=== PATIENT | female | born 1945 ===

== ENCOUNTER 2019-08-27 17:15 | Inpatient (IN) ==
[2019-08-27] MEDS ORDERED: ALBUTEROL/IPRATROPIUM 3 ML NEB RESP TX STA (19:15)
[2019-08-27] MEDS ORDERED: GLUCAGON 1 MG VIAL IM PRN (21:04)
[2019-08-27] MEDS ORDERED: ONDANSETRON 4 MG/2 ML VIAL IV PRN (21:04)
[2019-08-27] MEDS ORDERED: DEXTROSE 50% 25 GM/50 ML SYRINGE IV PRN (21:04)
[2019-08-27] MEDS: SODIUM CHLORIDE 0.9% 1,000 ML IV SCH (22:26)
[2019-08-28 06:59] LABS: Basophils % 0.2 % (0.0-0.8); Eosinophils # 0.1 10*3/uL (0.0-0.87); Eosinophils % 0.4 % (0.00-10.9); Hematocrit 36.3 VOL% (35.7-47.0); Immature Granulocytes % 0.6 %; Immature Granulocytes Absolute 0.12 #; Lymphocytes # 1.8 10*3/uL (1.4-4.0); Lymphocytes % 9.4 % (21.3-54.2); Mean Corpuscular HGB Conc 33.1 GM/DL (32-36); Mean Corpuscular Volume 85.8 FL (87-102); Mean Platelet Volume 10.3 FL (9.6-12.0); Monocytes % 6.6 % (1.7-12.7); Neutrophils % 82.8 % (38.7-73.9); Platelet Count 250 T/CUMM (130-400); Red Blood Count 4.23 MC/CUMM (3.8-5.5); Red Cell Distribution Width 12.7 % (9.3-17.3); White Blood Count 19.3 T/CUMM (4-12)
[2019-08-28 07:17] LABS: Albumin 2.9 G/DL (3.4-5.0); Calcium 8.4 MG/DL (8.5-10.1); Osmolality,Calculated 278.4 MOS/KG (273-304); Total Protein 7.8 G/DL (6.4-8.3)
[2019-08-28] MEDS: INSULIN REGULAR 100 UNIT/ML SUBCUT SCH ×5 (08:31→20:56)
[2019-08-28] MEDS: VANCOMYCIN INJ 1,250 MG in SODIUM CHLORIDE 0.9% 250 ML IV SCH (08:35)
[2019-08-28] MEDS ORDERED: BUPIVACAINE MPF 0.25% 30 ML VIAL ONE (12:13)
[2019-08-28] MEDS ORDERED: LIDOCAINE 2% 5 ML VIAL ONE (12:43)
[2019-08-28] MEDS ORDERED: propofoL 200 MG/20 ML VIAL IV ONE (12:43)
[2019-08-28] MEDS ORDERED: SEVOFLURANE 1 UNIT/15 MINUTE INH ONE (12:44)
[2019-08-28] MEDS ORDERED: PHENYLEPHRINE 1 MG/10 ML SYRINGE IV ONE (12:44)
[2019-08-28] MEDS ORDERED: SUCCINYLCHOLINE 200 MG/10 ML VIAL ONE (12:44)
[2019-08-28] MEDS ORDERED: fentaNYL 100 MCG/2 ML VIAL ONE (12:44)
[2019-08-28] MEDS ORDERED: LIDOCAINE 100 MG/5 ML SYRINGE ONE (13:11)
[2019-08-28] MEDS ORDERED: LIDOCAINE 100 MG/5 ML SYRINGE IV ONE (13:15)
[2019-08-28] MEDS ORDERED: GLUCAGON 1 MG VIAL IM PRN (13:22)
[2019-08-28] MEDS ORDERED: DEXTROSE 50% 25 GM/50 ML VIAL IV PRN (13:22)
[2019-08-28] MEDS: INSULIN GLARGINE 100 UNIT/ML SUBCUT SCH (14:24)
[2019-08-28] MEDS: PANTOPRAZOLE 40 MG TABLET PO SCH (14:57)
[2019-08-28] MEDS: SODIUM CHLORIDE 0.9% 1,000 ML IV SCH (18:01)
[2019-08-28] MEDS: ENOXAPARIN 30 MG/0.3 ML SYRINGE SUBCUT SCH (20:56)
[2019-08-29] MEDS: SODIUM CHLORIDE 0.9% 1,000 ML IV SCH (06:26)
[2019-08-29 06:41] LABS: Basophils % 0.1 % (0.0-0.8); Eosinophils # 0.1 10*3/uL (0.0-0.87); Eosinophils % 0.4 % (0.00-10.9); Hematocrit 31.8 VOL% (35.7-47.0); Hemoglobin 10.2 GM/DL (12.0-16.0); Immature Granulocytes % 0.5 %; Immature Granulocytes Absolute 0.07 #; Lymphocytes # 1.4 10*3/uL (1.4-4.0); Lymphocytes % 9.8 % (21.3-54.2); Mean Corpuscular HGB Conc 32.1 GM/DL (32-36); Mean Corpuscular Volume 86.9 FL (87-102); Neutrophils % 82.2 % (38.7-73.9); Platelet Count 224 T/CUMM (130-400); Red Blood Count 3.66 MC/CUMM (3.8-5.5); Red Cell Distribution Width 12.6 % (9.3-17.3); White Blood Count 14.2 T/CUMM (4-12)
[2019-08-29 07:14] LABS: Calcium 7.6 MG/DL (8.5-10.1)
[2019-08-29] MEDS: INSULIN REGULAR 100 UNIT/ML SUBCUT SCH ×4 (07:59→21:00)
[2019-08-29] MEDS: INSULIN GLARGINE 100 UNIT/ML SUBCUT SCH (08:41)
[2019-08-29] MEDS: PANTOPRAZOLE 40 MG TABLET PO SCH (08:41)
[2019-08-29] MEDS ORDERED: FUROSEMIDE 20 MG/2 ML VIAL IV ONE (10:26)
[2019-08-29 14:00] LABS: Apearance,Urine CLEAR (Clear); Bacteria,Urine Many /HPF (Few); Bilirubin,Urine Negative (Negative); Blood, Urine Moderate mg/dL (Negative); Glucose,Urine (UA) Negative (Negative); Ketones,Urine Negative (Negative); Mucus,Urine Occasional /LPF (Occasional); Nitrite,Urine Positive (Negative); Protein,Urine Negative; Squamous Epithelial Cell,Urine Occasional /HPF (0-10); Urine Color Yellow (Yellow); Urine Specific Gravity 1.012 (1.001-1.035); WBC,Urine 41 /HPF (0-6)
[2019-08-29] MEDS: cefTRIAXone 1,000 MG in SYRINGE 1 EACH IV SCH (16:44)
[2019-08-29] MEDS: ENOXAPARIN 30 MG/0.3 ML SYRINGE SUBCUT SCH (21:00)
[2019-08-30 05:47] LABS: Basophils % 0.2 % (0.0-0.8); Eosinophils # 0.1 10*3/uL (0.0-0.87); Eosinophils % 0.8 % (0.00-10.9); Hematocrit 30.2 VOL% (35.7-47.0); Immature Granulocytes % 0.5 %; Immature Granulocytes Absolute 0.05 #; Lymphocytes # 1.3 10*3/uL (1.4-4.0); Lymphocytes % 11.7 % (21.3-54.2); Mean Corpuscular HGB Conc 33.1 GM/DL (32-36); Mean Corpuscular Volume 86.8 FL (87-102); Mean Platelet Volume 10.3 FL (9.6-12.0); Monocytes % 8.3 % (1.7-12.7); Neutrophils % 78.5 % (38.7-73.9); Platelet Count 242 T/CUMM (130-400); Red Blood Count 3.48 MC/CUMM (3.8-5.5); Red Cell Distribution Width 12.5 % (9.3-17.3); White Blood Count 10.9 T/CUMM (4-12)
[2019-08-30] MEDS: INSULIN REGULAR 100 UNIT/ML SUBCUT SCH ×4 (07:30→20:08)
[2019-08-30] MEDS: INSULIN GLARGINE 100 UNIT/ML SUBCUT SCH (08:58)
[2019-08-30] MEDS: PANTOPRAZOLE 40 MG TABLET PO SCH (08:59)
[2019-08-30] MEDS: VANCOMYCIN INJ 1,250 MG in SODIUM CHLORIDE 0.9% 250 ML IV SCH (08:59)
[2019-08-30] MEDS: hydrOXYzine HCL 25 MG TABLET PO SCH ×3 (13:47→20:08)
[2019-08-30] MEDS: ALBUTEROL 0.63 MG/3 ML NEB RESP TX SCH ×2 (14:43→19:49)
[2019-08-30] MEDS: cefTRIAXone 1,000 MG in SYRINGE 1 EACH IV SCH (15:40)
[2019-08-30] MEDS: ENOXAPARIN 30 MG/0.3 ML SYRINGE SUBCUT SCH (20:08)
[2019-08-31] MEDS: ALBUTEROL 0.63 MG/3 ML NEB RESP TX SCH ×4 (00:16→19:28)
[2019-08-31 05:15] LABS: Basophils % 0.2 % (0.0-0.8); Eosinophils # 0.2 10*3/uL (0.0-0.87); Eosinophils % 2.2 % (0.00-10.9); Hematocrit 32.5 VOL% (35.7-47.0); Hemoglobin 10.6 GM/DL (12.0-16.0); Immature Granulocytes % 0.8 %; Immature Granulocytes Absolute 0.07 #; Lymphocytes # 1.7 10*3/uL (1.4-4.0); Lymphocytes % 20.1 % (21.3-54.2); Mean Corpuscular HGB Conc 32.6 GM/DL (32-36); Mean Corpuscular Volume 87.1 FL (87-102); Monocytes % 10.9 % (1.7-12.7); Neutrophils % 65.8 % (38.7-73.9); Platelet Count 256 T/CUMM (130-400); Red Blood Count 3.73 MC/CUMM (3.8-5.5); Red Cell Distribution Width 12.3 % (9.3-17.3); White Blood Count 8.4 T/CUMM (4-12)
[2019-08-31 05:57] LABS: Calcium 8.1 MG/DL (8.5-10.1); Osmolality,Calculated 280.1 MOS/KG (273-304)
[2019-08-31] MEDS: INSULIN REGULAR 100 UNIT/ML SUBCUT SCH ×4 (09:03→20:45)
[2019-08-31] MEDS: hydrOXYzine HCL 25 MG TABLET PO SCH ×4 (10:14→20:44)
[2019-08-31] MEDS: PANTOPRAZOLE 40 MG TABLET PO SCH (10:14)
[2019-08-31] MEDS: ASPIRIN EC 81 MG TABLET PO SCH (10:14)
[2019-08-31] MEDS: glipiZIDE 5 MG TABLET PO SCH (10:14)
[2019-08-31] MEDS: INSULIN GLARGINE 100 UNIT/ML SUBCUT SCH (10:15)
[2019-08-31] MEDS: cefTRIAXone 1,000 MG in SYRINGE 1 EACH IV SCH (11:22)
[2019-08-31] MEDS: VANCOMYCIN INJ 1,250 MG in SODIUM CHLORIDE 0.9% 250 ML IV SCH (11:29)
[2019-08-31] MEDS: SODIUM HYPOCHLORITE 0.25% IRRIG 473 ML BOTTLE TOP SCH (13:08)
[2019-08-31] MEDS: SIMVASTATIN 20 MG TABLET PO SCH (20:44)
[2019-08-31] MEDS: ENOXAPARIN 40 MG/0.4 ML SYRINGE SUBCUT SCH (20:45)
[2019-09-01] MEDS: ALBUTEROL 0.63 MG/3 ML NEB RESP TX SCH ×4 (01:20→19:10)
[2019-09-01] MEDS: ASPIRIN EC 81 MG TABLET PO SCH (08:24)
[2019-09-01] MEDS: PANTOPRAZOLE 40 MG TABLET PO SCH (08:24)
[2019-09-01] MEDS: SODIUM HYPOCHLORITE 0.25% IRRIG 473 ML BOTTLE TOP SCH (08:24)
[2019-09-01] MEDS: glipiZIDE 5 MG TABLET PO SCH (08:24)
[2019-09-01] MEDS: INSULIN GLARGINE 100 UNIT/ML SUBCUT SCH (08:24)
[2019-09-01] MEDS: hydrOXYzine HCL 25 MG TABLET PO SCH ×4 (08:24→22:17)
[2019-09-01] MEDS: VANCOMYCIN INJ 1,250 MG in SODIUM CHLORIDE 0.9% 250 ML IV SCH (08:25)
[2019-09-01] MEDS: INSULIN REGULAR 100 UNIT/ML SUBCUT SCH ×4 (09:05→22:16)
[2019-09-01] MEDS: CHLORHEXIDINE 4% SOLN 118 ML BOTTLE TOP SCH (14:42)
[2019-09-01] MEDS: SIMVASTATIN 20 MG TABLET PO SCH (22:17)
[2019-09-01] MEDS: ENOXAPARIN 40 MG/0.4 ML SYRINGE SUBCUT SCH (22:17)
[2019-09-01] MEDS: CALCIUM (CARBONATE) 600 MG TABLET PO SCH (22:17)
[2019-09-02] MEDS: ALBUTEROL 0.63 MG/3 ML NEB RESP TX SCH ×3 (00:30→13:25)
[2019-09-02 05:28] LABS: Calcium 8.1 MG/DL (8.5-10.1); Osmolality,Calculated 285.5 MOS/KG (273-304)
[2019-09-02] MEDS: INSULIN GLARGINE 100 UNIT/ML SUBCUT SCH (08:56)
[2019-09-02] MEDS: ASPIRIN EC 81 MG TABLET PO SCH (08:56)
[2019-09-02] MEDS: INSULIN REGULAR 100 UNIT/ML SUBCUT SCH ×2 (08:56→12:25)
[2019-09-02] MEDS: glipiZIDE 5 MG TABLET PO SCH (08:57)
[2019-09-02] MEDS: CALCIUM (CARBONATE) 600 MG TABLET PO SCH (08:57)
[2019-09-02] MEDS: PANTOPRAZOLE 40 MG TABLET PO SCH (08:57)
[2019-09-02] MEDS: hydrOXYzine HCL 25 MG TABLET PO SCH (08:57)
[2019-09-02] MEDS: VANCOMYCIN INJ 1,250 MG in SODIUM CHLORIDE 0.9% 250 ML IV SCH (09:01)
[2019-09-02 12:05] VITALS: BP 148/61
[2019-09-02] MEDS: CHLORHEXIDINE 4% SOLN 118 ML BOTTLE TOP SCH (12:25)
[2019-09-02] MEDS: SODIUM HYPOCHLORITE 0.25% IRRIG 473 ML BOTTLE TOP SCH (12:25)
== END 2019-09-02 13:40 | disposition home or self-care (01) | DRG 580 ==
LOC: N.ED 17:15 → N.2E 21:55 → SUATTDRO 21:55 → SUPCPDRO 21:55 → N.2E 22:08
PROVIDERS: ADMIT Internal Medicine; ATTEND Internal Medicine